=== PATIENT | female | born 1960 | race Caucasian/White ===

== ENCOUNTER 2018-06-02 11:34 | Emergency (ER) | payer OTHER ==
--- NOTE | 2018-06-02 11:36 | PDOC ---
History of Present Illness - General Chief Complaint: Pain, Acute Stated Complaint: LEFT FOREHEAD PAIN Time Seen by Provider: 06/02/18 11:36 History Source: Patient Exam Limitations: No Limitations - History of Present Illness Initial Comments: ms marcelo was not seen in the ER here She wants to have a CT scan done CT machine not functional at this time She went to another facility Past History - Past Medical History Allergies/Adverse Reactions: Allergies Allergy/AdvReac Type Severity Reaction Status Date / Time No Known Allergies Allergy Verified 06/02/18 11:35 Home Medications: Ambulatory Orders Escitalopram Oxalate [Lexapro -] 10 mg PO BID 06/02/18 *DC/Admit/Observation/Transfer Diagnosis at time of Disposition: Head trauma Qualifiers: Encounter type: initial encounter Qualified Code(s): S09.90XA - Unspecified injury of head, initial encounter - Discharge Dispostion Disposition: HOME Condition at time of disposition: Stable Decision to Admit order: No - Referrals Referrals: Jeri Willis MD [Primary Care Provider] - - Patient Instructions - Post Discharge Activity
== END 2018-06-02 11:42 | disposition home or self-care (01) ==
LOC: FER 11:34
DX: S09.90XA Unspecified injury of head, initial encounter (principal); X58.XXXA Exposure to other specified factors, initial encounter; Y93.89 Activity, other specified; Y92.9 Unspecified place or not applicable
CPT/HCPCS: 99281-25

== ENCOUNTER 2020-03-29 14:09 | Emergency (ER) | payer OTHER ==
[2020-03-29 14:19] VITALS: PULSE 66; TEMP 98.2; BMI 26.1
--- NOTE | 2020-03-29 14:21 | PDOC ---
History of Present Illness - General Chief Complaint: Blood Pressure Problem Stated Complaint: HEADACHE SWEATY LIGHT HEADED Time Seen by Provider: 03/29/20 14:12 History Source: Patient Exam Limitations: No Limitations - History of Present Illness Initial Comments: 03/29/20 14:16 HPI 59 YOF with h/o depression presenting with hypertension. Last night, she felt very flushed and sweaty and nauseous, she was also notified at that time her friend's son had just and caused some stress to her. This morning, she felt hot and flushed again, nausea, +mild frontal headache. 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 Has history of pre-hypertension, which is being managed with her primary doctor with diet and exercise. Denies fever, chills, chest pain, SOB, palpitation, dizziness, weakness, N, V, D, abdominal pain, bladder and bowel problems, focal weakness/paresthesias, leg swelling/pain, rash. No sick contacts or travel. No new changes in medications. no caffeine intake. Allergies: None Past Medical History/PSH: as above Social history: Lives with family. No tobacco, ETOH or drug use. Meds: as documented in EMR Family history: noncontributory PMD: Dr Jeri Willis Review of systems Constitutional: no fevers or chills. No weakness HEENT: no dizziness. No congestion. No visual/hearing disturbances. +headache. CVS: no cp or syncope. Resp: no sob. No cough. Gastrointestinal: no abdominal pain, vomiting, diarrhea. nausesa MUSCULOSKELETAL: No joint pain and swelling. No neck or back pain. SKIN: no redness or skin changes, no discharge, no rash. No wounds. Hematologic: no easy bruising/bleeding. NEUROLOGIC: No headache, dizziness, LOC or altered mental status. No weakness, numbness or tingling. Psych: no anxiety. +history of depression Allergic/Immunologic: no allergies All other systems reviewed and negative, or as documented in HPI. Physical exam General: Well appearing, awake and alert, NAD. HEENT: NCAT, PERRL, EOMI, clear conjunctiva, anicteric, moist mucus membranes, clear oropharynx, no oral lesions.. Neck: neck supple, FROM Resp: CTAB, normal and even respirations, no respiratory distress CVS: RRR, no murmurs, 2+ peripheral pulses throughout, no peripheral edema Abdomen: soft, NTND, no rebound or guarding. Back: nontender, normal inspection and ROM MSK: no edema, DURHAM x4, ROM intact. No clubbing or cyanosis. normal bulk and tone. Extremities: no calf tenderness Neuro: alert, oriented appropriately; no focal neurologic deficits, speech clear, CN II to XII grossly intact, gait stable. no cerebellar findings. no ataxia, finger to nose b/l equal and symmetric Psych: Calm and cooperative Skin: warm and well perfused, cap refill <2 sec, normal color, no rash or skin discoloration. 03/29/20 14:20 Past History - Medical History Allergies/Adverse Reactions: Allergies Allergy/AdvReac Type Severity Reaction Status Date / Time No Known Allergies Allergy Verified 06/02/18 11:35 Home Medications: Ambulatory Orders Escitalopram Oxalate [Lexapro -] 10 mg PO BID 06/02/18 *Physical Exam - Vital Signs Last Vital Signs Temp Pulse Resp BP Pulse Ox 98.2 F 66 18 132/78 03/29/20 14:10 03/29/20 14:10 03/29/20 14:10 03/29/20 15:25 Heart Score/ECG Review #1 ECG reviewed & interpreted by me at: 14:20 General ECG Interpretation: Sinus Rhythm, Normal Rate, Normal Intervals 03/29/20 14:21 EKG normal sinus rhythm 65 bpm, no interval abnormalities, narrow QRS, ST and T wave segments and morphology normal ED Treatment Course - LABORATORY CBC & Chemistry Diagram: 03/29/20 14:20 03/29/20 14:20 - ADDITIONAL ORDERS Additional order review: Laboratory Results 03/29/20 03/29/20 03/29/20 14:20 14:20 14:20 Sodium 136 Potassium 3.8 Chloride 102 Carbon Dioxide 23 Anion Gap 11 BUN 22.0 H Creatinine 1.1 Est GFR (CKD-EPI)AfAm 64.54 Est GFR (CKD-EPI)NonAf 55.69 Random Glucose 100 Calcium 9.3 Magnesium 2.2 Total Bilirubin 0.7 AST 22 ALT 19 Alkaline Phosphatase 93 Creatine Kinase 65 Troponin I < 0.03 Total Protein 7.6 Albumin 4.3 03/29/20 14:20 RBC 4.76 MCV 95.3 MCHC 33.0 RDW 12.5 MPV 10.5 Neutrophils % 64.8 Lymphocytes % 20.9 Monocytes % 8.4 Eosinophils % 5.0 H Basophils % 0.9 Medical Decision Making - Medical Decision Making 03/29/20 14:19 Vital Signs Temp Pulse Resp BP Pulse Ox 98.2 F 66 18 174/82 H 03/29/20 14:10 03/29/20 14:10 03/29/20 14:10 03/29/20 14:10 vitals reviewed wnl ddx. HTN, urgency vs emergency, end organ damage, renal insufficiency, anxiety, ACS, arrhythmia, head bleed neuro intact, doubt intracranial pathology, no focal neuro deficits, well appearing no cp or sob has nonspecific sx, could be related to long standing mild HTN which was being managed with diet and exercise she does have some recent acute stressors to likely cause her HTN will check labs, lytes, cardiac panel, ekg, reassess no cxr indicated, no cp or sob no head ct indicated, doubt SAH/bleed, CVA. 03/29/20 15:24 rpt BP downtrending 132/78 asymptomatic now given tylenol for headache labs and lytes wnl trop is neg. cr is normal. advised minimizing triggers and stressors, adequate rest, exercise and diet modifications and discussion with primary for clinical followup and bp rechecks Pt to be discharged in stable condition. Patient and family made aware of clinical impression, treatment recommendations and disposition plan, return precautions discussed (including but not limited to new or persistent/worsening symptoms, pain, fevers, or signs of infection, chest pain, respiratory distress, inability to tolerate oral intake, dehydration, syncope, or neurologic changes). Follow up with PMD as recommended, follow up information provided, take medications as instructed for duration of time. continue with supportive care, avoid triggers and precipitants. All questions answered to patient's satisfaction and expressed understanding and comfort with this. At the time of discharge, the patient is alert, clinically improved, tolerating po and verbalizes understanding of instructions, satisfied with the care received and felt comfortable with the plan. Patient does not suffer from an acute life- threatening medical condition at this time and is safe for outpatient follow- up. 03/29/20 15:29 Discharge - Discharge Information Problems reviewed: Yes Clinical Impression/Diagnosis: Hypertension Qualifiers: Hypertension type: unspecified Qualified Code(s): I10 - Essential (primary) hypertension Condition: Stable Disposition: HOME - Admission No - Follow up/Referral Referrals: Jeri Willis MD [Non Staff, Medical] - - Patient Discharge Instructions Patient Printed Discharge Instructions: Treatments for High Blood Pressure: More Than Just Taking a Pill, Recommendations to Help Prevent High Blood Pressure, DI for High Blood Pressure Additional Instructions: 1) Please follow-up with your primary care doctor in the next 1-2 days. Please c all tomorrow for for any urgent issues. 2) You were given a copy of the tests performed today. Please bring the results with you and review them with your primary care doctor. Your laboratory / imagi ng results were normal, 3) If you have any worsening of symptoms or any other concerns please return to the ED immediately. Return if worsening symptoms including fevers, headache, vomiting, visual or hearing disturbances, abdominal pain, chest pain, shortness of breath, syncope, dehydration, inability to take things by mouth/vomiting, altered mental status, or worsening concerning symptoms. 4) Please continue taking your home medications as directed. Stay well hydrated and rest adequately. Avoid any stressors. Make an appointment. If you cannot follow-up with your primary care doctor ple ase return to the ED - Post Discharge Activity
[2020-03-29 14:53] LABS: BASO % 0.9 % (0-2.0); HEMATOCRIT 45.4 % (32.4-45.2); LYMPH % 20.9 % (8-40); MCH 31.5 pg (25.7-33.7); MEAN CELL VOLUME 95.3 fl (80-96); MEAN PLT VOLUME 10.5 fl (7.5-11.1); MONO % 8.4 % (3.8-10.2); NEUT % 64.8 % (42.8-82.8); PLATELET COUNT 247 K/MM3 (134-434); RBC 4.76 M/mm3 (3.60-5.2); RDW 12.5 % (11.6-15.6); WHITE BLOOD COUNT 10.1 K/mm3 (4.0-10.8)
[2020-03-29 15:01] LABS: ALBUMIN 4.3 g/dl (3.4-5.0); BILIRUBIN,TOTAL 0.7 mg/dl (0.2-1); CALCIUM 9.3 mg/dl (8.5-10); CREATININE 1.1 mg/dl (0.55-1.3); MAGNESIUM 2.2 mg/dL (1.8-2.4); POTASSIUM 3.8 mmol/L (3.5-5.1); TOT PROT 7.6 g/dl (6.4-8.2)
[2020-03-29] MEDS ORDERED: ACETAMINOPHEN 325 MG TABLET (FP) PO ONE (15:10)
[2020-03-29 15:25] VITALS: BP 132/78
[2020-03-29] MEDS ORDERED: ACETAMINOPHEN 325 MG TABLET (FP) ONE (15:26)
--- NOTE | 2020-03-30 15:29 | EKG ---
Test Reason : Blood Pressure : / mmHG Vent. Rate : 065 BPM Atrial Rate : 065 BPM P-R Int : 132 ms QRS Dur : 078 ms QT Int : 424 ms P-R-T Axes : 041 063 058 degrees QTc Int : 440 ms NORMAL SINUS RHYTHM POSSIBLE LEFT ATRIAL ENLARGEMENT BORDERLINE ECG NO PREVIOUS ECGS AVAILABLE Confirmed by MUNIRA LONDONO, JOSE ([id number]) on 03/30/2020 3:29:09 PM Referred By: ERNIE CEDENO Confirmed By:JOSE LOMBARDO MD
== END 2020-03-29 15:40 | disposition home or self-care (01) ==
LOC: FER 14:09
DX: I10 Essential (primary) hypertension (principal)
CPT/HCPCS: 36415; 80053; 82550; 83735; 84443; 84484; 85025; 93005; 99284-25